=== PATIENT | male | born 1955 ===

== ENCOUNTER 2024-11-13 06:52 | Outpatient (CLI) | payer MEDICARE ==
--- NOTE | 2024-11-13 15:30 | DVH ---
EXAM: NM NM BONE 3 PHASE History: PAINFUL HARDWARE Comparison Study: None TECHNIQUE: Immediately after the radiopharmaceutical, flow images of the were acquired, followed by blood pool images of the bilateral knees . Then, approximately 3 hours later, additional im ages of the were acquired. Anterior and posterior whole body images were also acquired. CONTRAST MEDIA AND RADIOPHARMACEUTICALS: FINDINGS: Flow images demonstrate no evidence of abnormally increased blood flow . Blood pool images demonstrate mild right knee hyperemia. Photopenia of the left knee. Delayed images demonstrate increased radiotracer uptake along the right knee. Photopenia of the left knee. IMPRESSION: 1. Left total knee arthroplasty without abnormal radiotracer uptake to suggest loosening or infection . 2. Increased radiotracer uptake on the blood pool and delayed images along the right knee favored deg enerative change.
== END 2024-11-13 17:00 | disposition home or self-care (01) ==
LOC: XYW 06:52
PROVIDERS: ATTEND Orthopaedic Surgery Adult Reconstructive Orthopaedic Surgery
DX: T84.84XA Pain due to internal orthopedic prosthetic devices, implants and grafts, initial encounter (principal); M17.11 Unilateral primary osteoarthritis, right knee; Z96.652 Presence of left artificial knee joint; M25.561 Pain in right knee; X58.XXXA Exposure to other specified factors, initial encounter; Y93.89 Activity, other specified; Y92.89 Other specified places as the place of occurrence of the external cause; Y99.8 Other external cause status
CPT/HCPCS: 78315; A9503